=== PATIENT | female | born 1990 | race Asian ===

== ENCOUNTER 2021-09-25 17:47 | Emergency (ER) | payer OTHER ==
[~2021-09-25] VITALS: Ht 170.2 cm; Wt 61.0 kg
[2021-09-25 17:50] VITALS: BP 117/74
[2021-09-25] MEDS ORDERED: METHYLPREDNISOLONE SOD SUCC 125 MG/2 ML VIAL IV ONE (18:15)
[2021-09-25] MEDS ORDERED: FAMOTIDINE 20MG/2ML VIAL IV ONE (18:15)
[2021-09-25] MEDS ORDERED: SODIUM CHLORIDE 0.9% 1,000 ML IV SCH (18:15)
[2021-09-25] MEDS ORDERED: P20 MT (20:30)
[2021-09-25] MEDS ORDERED: EPIN0.3P3 IM (20:30)
[2021-09-25] MEDS ORDERED: DIPH25CA83 MT (20:30)
== END 2021-09-25 21:04 | disposition home or self-care (01) ==
LOC: ER 17:47
DX: T78.2XXA Anaphylactic shock, unspecified, initial encounter (principal)
CPT/HCPCS: 81025; 96361; 96374; 96375; 99284; J2930; J3490